=== PATIENT | female | born 1965 | race Caucasian/White ===

== ENCOUNTER 2018-09-04 10:04 | Outpatient (CLI) | payer BC ==
--- NOTE | 2018-09-04 10:49 | RAD ---
Neutral, flexion, and extension lateral radiographs of the cervical spine: 09/04/2018 COMPARISON: None HISTORY: Intermittent neck pain FINDINGS: Disc space narrowing with degenerative endplate change and anterior osteophyte formation no singh at C5-6 and C6-7. Flexion imaging demonstrates minimal anterolisthesis at C4-5 measuring 3 mm. This is not seen on the neutral or extension imaging. No prevertebral soft tissue swelling. IMPRESSION: Cervical spine degenerative change as described above.
== END 2018-09-04 10:05 | disposition home or self-care (01) ==
LOC: TBSIIMAG 10:04
PROVIDERS: ATTEND Neurological Surgery
DX: M54.2 Cervicalgia (principal); M47.812 Spondylosis without myelopathy or radiculopathy, cervical region
CPT/HCPCS: 72040